=== PATIENT | male | born 1945 | race Caucasian/White ===

== ENCOUNTER 2018-05-25 10:16 | Observation (INO) | payer SELFPAY ==
[2018-05-25] VITALS (11 sets, daily range): BP systolic 132–174; BP diastolic 84–92; PULSE 60–84; RESP 15–26; TEMP 36.6–37.2; O2SAT 94–98; BMI 31.6; BMI 30.3
--- NOTE | 2018-05-25 10:29 | CT_ITS ---
STUDY: CT BRAIN WITHOUT CONTRAST REASON FOR EXAM: Male, 72 years old. Weakness. Left facial droop. RADIATION DOSAGE (If Supplied By Facility): CTDIvol = ( 44.99 ) mGy, DLP = ( 812.98 ) mGycm TECHNIQUE: Transaxial CT imaging of the brain was performed without administration of intravenous contrast material. Individualized dose optimization techniques were used for this CT. COMPARISON: No relevant priors. FINDINGS: Normal soft tissue structures. Normal calvarium. There is mild cerebral atrophy with widening of the extra-axial spaces and ventricular dilatation. Normal white matter tracts of the cerebral hemispheres. There are small punctate calcifications of the basal ganglia which are seen in the aging brain as a normal variant. Normal brainstem. Normal cerebellum. There is no intracranial hemorrhage. There are no findings of an acute ischemic infarction. Atherosclerotic calcification of the cavernous portions of the internal carotid arteries bilaterally. Dense opacification with calcification in the sphenoid sinus extending into the posterior aspect of the right ethmoid sinus. CT/Brain/Head without Contrast IMPRESSION: Chronic involutional changes of the brain. Dense opacification of the sphenoid sinus worse on the right side. Electronically Signed: Panchito Sullivan, at 11:07 EDT , Service support ,
--- NOTE | 2018-05-25 10:29 | EKG12_ITS ---
Test Reason : SOB Blood Pressure : / mmHG Vent. Rate : 079 BPM Atrial Rate : 079 BPM P-R Int : 196 ms QRS Dur : 112 ms QT Int : 412 ms P-R-T Axes : 054 030 027 degrees QTc Int : 472 ms Sinus rhythm with Premature atrial complexes Otherwise normal ECG Confirmed by CECILY COOL, ALE ([id number]), editor map JOANNE BRAMBILA ([id number]) on 05/31/2018 4:16:50 PM Referred By: Rebecca Martinez Confirmed By:ALE TONY MD
--- NOTE | 2018-05-25 10:29 | RAD_ITS ---
STUDY: X-RAY CHEST REASON FOR EXAM: Male, 72 years old. Weakness and facial tingling. TECHNIQUE: Single AP portable view of the chest. COMPARISON: None. FINDINGS: EKG electrodes are seen. Hyperinflation. Mild increased markings at the left lung base suggestive of linear atelectasis and/or scarring. Normal size heart. Normal mediastinum and jas. Normal visualized pulmonary arteries. There is atherosclerotic calcification of the aortic arch with tortuosity. There are diffuse degenerative changes of the visualized thoracic spine. Normal visualized ribs, clavicles, and shoulders. There is no demonstrated abnormality of the visualized soft tissue structures of the upper abdomen. RAD/Chest 1 View IMPRESSION: Hyperinflation. Mild increased markings at the left lung base suggestive of linear atelectasis and/or scarring. Electronically Signed: Panchito Sullivan, at 11:08 EDT , Service support ,
--- NOTE | 2018-05-25 10:49 | ED.VISSUMM ---
- ER Visit Summary Date of Service: 05/25/18 Chief Complaint: Left side weakness History of Present Illness: The patient is a 72 M who is now asymptomatic was brought in for left-sided weakness that started an hour ago and lasted about a half an hour. This started suddenly, the describes left arm weakness, left leg weakness left facial droop and what seems to me like dysarthria. Patient also told me he felt dizzy, but not lightheaded, nonvertiginous, somewhat ill-defined. He denied any chest pain or shortness of breath. No vision changes. He is now asymptomatic Physical Examination: Not appear in acute distress. Moist mucous membranes, no obvious facial deformity No C-spine tenderness supple neck. Regular rate and rhythm without any obvious murmurs Clear lungs bilaterally speaking in full sentences without any obvious respiratory distress Abdomen soft and nontender no guarding or rebound Moves all extremities without any difficulty or pain. Skin does not show any obvious rashes or lesions, no trauma. Alert oriented ?3 with no gross focal deficit. NIH stroke scale done by me is 0. Emergency Department Course and Treatment: Patient has an unremarkable ED workup after discussing with Dr. Pearson patient will get a CT angiogram assuming this will be unremarkable patient will be admitted for further workup. Disposition: Admit to hospital in stable condition Impression: TIA This note was generated with [employer] dictation software. It may contain incorrect words, spelling, and punctuation that were not noted in review of the chart prior to signing ED Disposition - Plan for ED Patient: Referrals: [facility] Doctor,Out of [Primary Care Provider] -
[2018-05-25 10:57] LABS: Absolute Lymphocyte Count 2.68 X10^3/ul (0.83-4.51); Absolute Neutrophil Count 5.4 X10^3/uL (2.0-7.7); Basophil# 0.06 X10^3/uL; Basophil% 0.7 % (0-1); Eosinophil# 0.14 X10^3/uL; Eosinophils% 1.6 % (0-5); Hematocrit 43.1 % (40-54); Hemoglobin 14.7 g/dl (13.0-16.5); Lymphocyte # 2.68 X10^3/ul (4.0); Lymphocyte % 29.9 % (19-41); Mean Corp Hgb Conc 34.1 g/gl (32-36); Mean Corpuscular Hgb 33.4 pg (27.0-32.0); Mean Platelet Vol. 11.2 fl (6.2-12.0); Monocyte% 7.8 % (0-10); Neutrophil # 5.37 X10^3/uL (2.7-7.7); Neutrophil % 59.9 % (47-70); POSITIVE COUNT NO; POSITIVE DIFFERENTIAL NO; POSITIVE MORPHOLOGY NO; Platelet Count 201 K/mm3 (150-450); RBC Distribution Width CV 12.9 % (11.6-14.6); RBC Distribution Width SD 46.3 fl (35.1-43.9)
[2018-05-25 11:00] LABS: International Normalized Ratio 1.2; Prothrombin Time (Protime)PT. 14.6 SECONDS (11.7-14.9)
[2018-05-25] MEDS: Aspirin 325 MG Tablet PO (11:05)
[2018-05-25 11:11] LABS: Anion Gap 5 (5-15); BUN 15 mg/dL (7-18); BUN/Creat Ratio 12.3 RATIO (10-20); Calcium,Total 8.6 mg/dL (8.5-10.1); Chloride 106 mmol/L (98-107); Creatinine, Serum 1.22 mg/dL (0.70-1.30); EST Glomerular Filtration Rate 62 mL/min (>60); Est Glom Filt Rate - Afr Amer 75 mL/min (>60); Estimated Creatinine Clearance 61.84 ml/min; Glucose 166 mg/dL (74-106); Potassium 3.4 mmol/L (3.5-5.1); Sodium Level 138 mmol/L (136-145)
--- NOTE | 2018-05-25 12:07 | CT_ITS ---
STUDY: CTA NECK WITH CONTRAST REASON FOR EXAM: Male, 72 years old. Weakness and TIAs. RADIATION DOSAGE (If Supplied By Facility): CTDIvol = ( 24.19 ) mGy, DLP = ( 790.03 ) mGycm TECHNIQUE: CT angiography with multi-detector data acquisition was performed from the aortic arch to the skull base following intravenous administration of 100 IV Isovue 370. MIP images were reconstructed from the axial data set. Post-processing of the angiographic images was performed, with multiplanar reformation and 3D reconstruction. Individualized dose optimization techniques were used for this CT. COMPARISON: None. FINDINGS: AORTIC ARCH: There is atherosclerotic calcific plaque formation of the aortic arch and great vessels arising from the aortic arch, without a hemodynamically significant stenosis. There is a 9 mm x 8.8 mm mural thrombus along the medial aspect of the aortic arch suggestive of a soft plaque or thrombus. There is a normal origin of the brachiocephalic, left common carotid, and left subclavian arteries. RIGHT CAROTID ARTERIES: Normal right common carotid artery (CCA). Normal right common carotid bulb. There is mild atherosclerotic plaque formation of the origin of the right internal carotid artery with less than 50% cross sectional diameter stenosis. Normal visualized cervical portion of the right internal carotid artery. Normal origin of the right external carotid artery (ECA). LEFT CAROTID ARTERIES: Normal left common carotid artery (CCA). Normal left common carotid bulb. There is mild atherosclerotic plaque formation of the origin of the left internal carotid artery with less than 50% cross sectional diameter stenosis. Normal visualized cervical portion of the left internal carotid artery. Normal origin of the left external carotid artery (ECA). VERTEBRAL ARTERIES: Normal bilateral vertebral arteries. CT/CTA Neck W/WO Contrast IMPRESSION: Calcific plaque at the origins of both left and right internal carotid arteries causing less than 50% narrowing. 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 Opacification of the sphenoid sinus. Electronically Signed: Panchito Sullivan, at 13:08 EDT , Service support ,
--- NOTE | 2018-05-25 12:07 | CT_ITS ---
STUDY: CTA OF THE BRAIN REASON FOR EXAM: Male, 72 years old. Weakness. TIA. RADIATION DOSAGE (If Supplied By Facility): CTDIvol = ( 24.19 ) mGy, DLP = ( 790.03 ) mGycm TECHNIQUE: CT angiography was performed with a multi-detector CT scanner. Data acquisition was obtained from the skull base through the vertex following intravenous administration of 100 IV Isovue 370. MIP images were reconstructed from the axial data set. Post-processing of the angiographic images was performed, with multiplanar reformation and 3D reconstruction. Individualized dose optimization techniques were used for this CT. COMPARISON: None. FINDINGS: Normal bilateral petrous carotid arteries. There is calcified plaque formation of the right cavernous carotid artery, without a cross-sectional luminal stenosis. There is calcified plaque formation of the left cavernous carotid artery, without a cross-sectional luminal stenosis. Normal right A1 segments of the anterior cerebral artery. There is hypoplastic development of the left A1 segment of the anterior cerebral arteries with an atretic but intact artery. Normal intact anterior communicating artery (ACOM). Normal bilateral A2 segments of the anterior cerebral arteries. Normal right M1 and M2 segments of the middle cerebral arteries, with a normal M1 bifurcation. Normal left M1 and M2 segments of the middle cerebral arteries, with a normal M1 bifurcation. Normal right posterior communicating artery (PCOM). Normal left posterior communicating artery (PCOM). Normal bilateral vertebral arteries. Normal basilar artery with a normal basilar bifurcation. The visualized bilateral superior cerebellar (SCA) arteries are normal. Normal bilateral P1, P2 and visualized P3 segments of the posterior cerebral arteries. There is no demonstrated aneurysm of the [place]. Opacification of the sphenoid sinus. 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 Opacification of the sphenoid sinus. Electronically Signed: Panchito Sullivan, at 12:59 EDT , Service support ,
--- NOTE | 2018-05-25 12:27 | HP.PCM_ITS ---
History of Present Illness Date of Admission: 05/25/18 Chief Complaint: left sided tingling The patient is a 72 year old M with past medical history of elevated ferritin. He was admitted through the ED on 05/25/2018 with a complaint of left-sided tingling. Patient is originally from [place] and has been on a road trip since December where he drove from [place] down to [place] and was driving up to [place] when he stopped over and will start to visit family. He was eating breakfast this morning when he noted that he was having tingling on the right side of his face. This spread down to his left arm and left leg. He says he felt too weak to stand up but did not describe any particular weakness in his extremities. He denied any blurring of his vision, any slurred speech, any tinnitus, any headache or any numbness. Of note, his states that she noted that he had some left facial droop. The EMS was called and was he also noted to have elevated blood pressure which was mildly elevated in the 140 systolic. NIHSS in the ED was 0. CT head done was negative. CT angiogram ordered and was pending at time of review. He is being admitted to be managed for TIA.[] Past Medical History Allergies No Known Allergies Allergy (Verified 05/25/18 10:30) Home Medications: Ambulatory Orders Medication Instructions Recorded NK 05/25/18 Surgical History: no surgical history Psychiatric History: No pertinent psych hx Lives: Spouse/ Significant Other Smoking Status: Never smoker Tobacco Use: Cigarettes - quit 50 years ago Alcohol: None Drugs: None - *Family History Maternal History Items: - - CVA Paternal History Items: - - CVA Review of Systems Constitutional: Denies: Chills, Fever, Weight Change Eyes: Denies: Blurred vision, Double vision HEENT: Denies: Dysphasia, Head Aches, Sinus Congestion, Sinus Drainage, Visual Changes Cardiovascular: Denies: Chest Pain, Palpitations Respiratory: Denies: Cough, Shortness of Breath, Shortness of breath at rest, Sputum production Gastrointestinal: Denies: Abdominal Pain, Nausea, Vomiting Genitourinary: Denies: Dysuria Musculoskeletal: Denies: Joint Pain, Joint Tenderness Skin: Denies: Rash, Wounds Neurological: Reports: Tingling - left side of face, left UE and LLE. Denies: Double vision, Change in Speech, Slurred speech, Confusion, Focal weakness, Numbness, Tremor, Seizures Hematologic/ Lymphatic: Denies: Easy Bruising, Easy Bleeding VTE Information - Inpt Only VTE Present on Admission: No VTE Pharm Prophylaxis ordered?: Yes - Physical Exam General: Alert, Oriented x3, Cooperative, No apparent distress HEENT: Atraumatic, PERRLA, EOMI, Normocephalic Oral: Moist Mucosa Neck: Supple, No JVD, Negative Carotid Bruits Lungs: Clear to auscultation, Normal air movement, No rhonchi, No wheeze, No rales Cardiovascular: Regular rate, Regular Rhythm, Normal S1, Normal S2, No murmurs Abdomen: Bowel Sounds Present, Soft, Non Tender, Non-Distended Extremities: No clubbing, No cyanosis, No edema, Capillary Refill Less than 3 Seconds Skin: No rashes, No breakdown Musculoskeletal: No Tenderness to Palpation of Joints or Extremities Lymphatic: No Cervical, Supraclavicular, or Inguinal Adenopathy Neurological: Cranial nerves II-XII grossly intact, Neuro grossly intact, Motor Exam 5/5 strength throughout, - - NIHSS was 0 Psych/Mental Status: Normal Affect, Appropriate, Alert and oriented to time, place, person, mood and affect Vital Signs Temp Pulse Resp BP Pulse Ox 98.3 F 64 20 H 147/87 H 97 05/25/18 10:18 05/25/18 11:30 05/25/18 11:30 05/25/18 11:30 05/25/18 11:30 Oxygen Delivery Method Room Air Weight: 233 lb 3.985 oz Body Mass Index (BMI) 31.6 Finger Stick Blood Glucose 155 Laboratory Tests Past 24 Hrs 05/25/18 05/25/18 05/25/18 10:25 10:25 10:25 WBC 9.0 RBC 4.40 L Hgb 14.7 Hct 43.1 MCV 98.0 H MCH 33.4 H MCHC 34.1 RDW 12.9 RDW Differential 46.3 H Plt Count 201 MPV 11.2 Immature Gran % (Auto) 0.100 Neut % (Auto) 59.9 Lymph % (Auto) 29.9 [place] % (Auto) 7.8 Eos % (Auto) 1.6 Baso % (Auto) 0.7 Absolute Neuts (auto) 5.4 Absolute Lymphs (auto) 2.68 Total Counted Not Reportable PT 14.6 INR 1.2 APTT 32.0 Sodium 138 Potassium 3.4 L Chloride 106 Carbon Dioxide 27.0 Anion Gap 5 BUN 15 Creatinine 1.22 Estim Creat Clear Calc 61.84 Est GFR (MDRD) Af Amer 75 Est GFR (MDRD) Non-Af 62 BUN/Creatinine Ratio 12.3 Glucose 166 H Calcium 8.6 Troponin I < 0.[address] 05/25/18 10:29 IMPRESSION: Chronic involutional changes of the brain. Dense opacification of the sphenoid sinus worse on the right side. Electronically Signed: Panchito Sullivan, at 11:07 EDT , Service support , Chest X-Ray 05/25/18 10:29 IMPRESSION: Hyperinflation. Mild increased markings at the left lung base suggestive of linear atelectasis and/or scarring. 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 Opacification of the sphenoid sinus. Electronically Signed: Panchito Sullivan, at 12:59 EDT , Service support , Neck CTA 05/25/18 12:07 IMPRESSION: Calcific plaque at the origins of both left and right internal carotid arteries causing less than 50% narrowing. 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 Opacification of the sphenoid sinus. Electronically Signed: Panchito Sullivan, at 13:08 EDT , Service support , Assessment/Plan 72 y/o male presenting with a complaint of left sided tingling 1. TIA * ABCD score 4; symptoms lasted for ~ 25 mins * NIHSS was 0 on admission * CT brain showed chronic brain involutional changes, and dense opacification of sphenoid sinus worse on right side * head CTA showed hypoplastic development of left A1 segment of anterior cerebral artery, and neck CTA showed calcific plaque at origins of both left and right internal carotid arteries causing <50% narrowing, and focal mural thrombus along medial aspect of aortic arch * admit to PCU with telemetry * PO aspirin 81mg daily * 2D echocardiogram * check lipid panel and A1C * brain MRI * neurology consult * 2. Aortic arch thrombus: * incidental finding per CDT neck. could embolise and cause a stroke. * Will likely need oral anticoagulation after the MRI shows no evidence of a bleed in the brain. * 3. Elevated ferritin * says he has a history of elevated ferritin, and has been worked up for it in [place], but not specific disease etiology was found. * stable * 4. Hypertension: * not a known hypertensive. BP was in 170s systolic on review in the ED. * will monitor; if MRI is negative, will start BP meds with goal BP of <130/80 * DVT prophylaxis: SCDs Code Visit OBSV E&M: 85054 Initial observation care L3
--- NOTE | 2018-05-25 13:59 | MRI_ITS ---
STUDY: MRI BRAIN WITHOUT CONTRAST REASON FOR EXAM: Male, 72 years old. Left facial numbness and droop TECHNIQUE: Standardized multiplanar fat and water weighted pulse sequences were obtained. COMPARISON: CTA brain and CT brain May 25, 2018 FINDINGS: Normal size of the ventricles and extra-axial spaces for the patient's age. Normal white matter tracts of the supratentorial brain. There is no evidence for recent intracranial ischemia or other cause of cytotoxic edema on diffusion weighted imaging (DWI). Normal bilateral basal ganglia. Normal thalami. There is no extra-axial fluid accumulation. Normal flow voids within the major intracranial circulation suggesting patency by spin echo criteria. Normal sella turcica, pituitary gland, infundibular stalk, optic chiasm and hypothalamus. Normal tectal plate and pineal gland. Normal midbrain, ashish and medulla. Normal cerebellum. Normal basal cisterns. Normal bilateral temporal bones. Normal bilateral internal auditory canals. No demonstrated orbital abnormality, within the constraints of a routine brain study. Hypointensity T1 and T2-weighted sequences within the sphenoid sinus. Normal calvarium and skull base. Normal visualized soft tissue structures. Normal visualized upper cervical spine. MRI/Brain without Contrast IMPRESSION: No acute stroke. Inspissated secretions versus chronic sinus disease within the sphenoid sinus. Consider fungal infection. Electronically Signed: David Lewis MD at 20:24 EDT , Service support ,
--- NOTE | 2018-05-25 14:06 | ECHOCS_ITS ---
Reason For Study: ARRYTHMIA Procedure This was a 2D Doppler, Color Flow transthoracic echocardiogram. The study was technically difficult. Contrast injection was performed. Exam performed portable in patient room. Left Ventricle Normal LV size. Left ventricular systolic function is normal. The estimated ejection fraction is 65 %. No regional wall motion abnormalities noted. Right Ventricle Normal RV size. Normal systolic function. Atria The left atrium is moderately enlarged. Normal right atrium. No doppler evidence for ASD. Mitral Valve There is no mitral annular calcification. Normal mitral valve. Mild (1+) mitral valve insufficiency. Tricuspid Valve Normal tricuspid valve. Mild tricuspid valve insufficiency. Right ventricular systolic pressure estimated to be 30 mmHg. Aortic Valve Trisinus/trileaflet aortic valve. Normal aortic valve. Pulmonic Valve The pulmonic valve is not well visualized. Mild (1+) pulmonic valve insufficiency. Great Vessels Borderline enlarged aortic root. Calcified aortic root. Pericardium/Pleural No pericardial effusion. Medication Diluted definity 3.0ml given slow IV push to enhance endocardial definition. MMode/2D Measurements & Calculations LVIDd: 4.9 cm IVSd: 1.1 cm Ao root diam: 3.9 cm LVIDs: 3.1 cm LVPWd: 1.1 cm RVDd: 3.8 cm FS: 36.0 % LAV(MOD-bp): 101.5 ml LA A4 area: 26.6 cm2 LA dimension(2D): 3.8 cm LAV(MOD-bp) Indexed: 44.6 ml/m2 LAV(MOD-sp2): 87.4 ml LAV(MOD-sp4): 101.5 ml RA A4 area: 16.8 cm2 Time Measurements MV dec time: 0.19 sec Doppler Measurements & Calculations MV E max chapito: 99.5 cm/sec Lat Peak E' Chapito: 11.1 cm/sec Med Peak E' Chapito: 9.2 cm/sec MV A max chapito: 80.8 cm/sec E/E' lat: 9.0 E/E' med: 10.8 MV E/A: 1.2 Ao V2 max: 127.8 cm/sec LV V1 max: 107.3 cm/sec PA V2 max: 106.5 cm/sec Ao max P.5 mmHg LV V1 max P.6 mmHg PI end-d chapito: 121.6 cm/sec TR max chapito: 260.2 cm/sec TR max P.1 mmHg Interpretation Summary The study was technically difficult. Contrast injection was performed. Left ventricular systolic function is normal. The estimated ejection fraction is 65 %. The left atrium is moderately enlarged. Mild (1+) mitral valve insufficiency. Mild tricuspid valve insufficiency. Mild (1+) pulmonic valve insufficiency. Calcified aortic root. Right ventricular systolic pressure estimated to be 30 mmHg. Transmitral diastolic flow velocities suggest diastolic dysfunction (pseudonormal pattern). Ordering Physician: Rebecca Martinez Referring Physician: OTD Performed By: Mihaela Ledezma RDCS, RVT
[2018-05-25 14:40] LABS: Cholesterol 193 mg/dL (200); High Density Lipoprotein 31 mg/dL; Triglycerides 114 mg/dL; Very Low Density Lipoprotein 23 mg/dL (5-40)
[2018-05-25 15:08] LABS: Hemoglobin A1c 5.6 % (4.2-6.3)
[2018-05-25] MEDS: Atorvastatin Calcium 40 MG Tablet PO (16:20)
[2018-05-25] MEDS: HEPARIN/D5w 25,000 UNITS 25,000 UNITS/250 ML IV.SOLN. 15 UNITS IV (17:41)
[2018-05-25 23:54] LABS: Partial Thromboplast Time 73.5 Seconds (24.1-36.2)
[2018-05-26] VITALS (7 sets, daily range): BP systolic 116–149; BP diastolic 70–84; PULSE 61–99; RESP 16–19; TEMP 36.5–36.8; O2SAT 93–95; BMI 30.3
--- NOTE | 2018-05-26 03:28 | EKG12_ITS ---
Test Reason : Blood Pressure : / mmHG Vent. Rate : 064 BPM Atrial Rate : 064 BPM P-R Int : 216 ms QRS Dur : 094 ms QT Int : 426 ms P-R-T Axes : 047 016 033 degrees QTc Int : 439 ms Sinus rhythm with 1st degree A-V block Otherwise normal ECG When compared with ECG of 25-MAY-2018 10:20, MANUAL COMPARISON REQUIRED, DATA IS UNCONFIRMED Confirmed by CECILY COOL, ALE ([id number]), dictionary editor JOANNE BRAMBILA ([id number]) on 05/31/2018 5:36:04 PM Referred By: Rebecca Martinez Confirmed By:ALE TONY MD
[2018-05-26 05:37] LABS: Absolute Lymphocyte Count 1.84 X10^3/ul (0.83-4.51); Absolute Neutrophil Count 4.2 X10^3/uL (2.0-7.7); Basophil# 0.04 X10^3/uL; Basophil% 0.6 % (0-1); Eosinophil# 0.19 X10^3/uL; Eosinophils% 2.7 % (0-5); Hematocrit 40.7 % (40-54); Hemoglobin 13.9 g/dl (13.0-16.5); Lymphocyte # 1.84 X10^3/ul (4.0); Lymphocyte % 26.1 % (19-41); Mean Corp Hgb Conc 34.2 g/gl (32-36); Mean Corpuscular Volume 96.7 fL (80-94); Mean Platelet Vol. 11.1 fl (6.2-12.0); Monocyte# 0.72 X10^3/uL; Monocyte% 10.2 % (0-10); Neutrophil # 4.24 X10^3/uL (2.7-7.7); Neutrophil % 60.3 % (47-70); Platelet Count 172 K/mm3 (150-450); RBC Distribution Width CV 12.5 % (11.6-14.6); RBC Distribution Width SD 43.1 fl (35.1-43.9); Red Blood Count 4.21 M/mm3 (4.6-6.2)
[2018-05-26 05:41] LABS: Partial Thromboplast Time 100.2 Seconds (24.1-36.2)
[2018-05-26 05:44] LABS: Anion Gap 7 (5-15); BUN 11 mg/dL (7-18); BUN/Creat Ratio 10.7 RATIO (10-20); Calcium,Total 8.2 mg/dL (8.5-10.1); Chloride 109 mmol/L (98-107); Creatinine, Serum 1.03 mg/dL (0.70-1.30); EST Glomerular Filtration Rate 76 mL/min (>60); Est Glom Filt Rate - Afr Amer 92 mL/min (>60); Estimated Creatinine Clearance 75.42 ml/min; Glucose 106 mg/dL (74-106); Potassium 4.1 mmol/L (3.5-5.1); Sodium Level 140 mmol/L (136-145)
[2018-05-26 05:49] LABS: POSITIVE COUNT NO; POSITIVE DIFFERENTIAL NO; POSITIVE MORPHOLOGY NO
[2018-05-26 08:20] LABS: Bedside Glucose 155 mg/dL (70-110)
[2018-05-26] MEDS: Aspirin 325 MG Tablet PO (09:37)
--- NOTE | 2018-05-26 10:20 | PCM.CONS.GEN ---
Reason for Consult Date of Consultation: 05/26/18 Reason for Consultation: right paresthesias History of Present Illness: The patient is a 72 year old M right handed, yesterday am noted left sided paresthesias and left weakness. now improved. no trigger, no med changes. not on meds normally very healthy. has been travelling to [place] for 12 yrs, 10yrs cough. mri report no cva but possible sphenoid fungal infection per admit note:The patient is a 72 year old M with past medical history of elevated ferritin. He was admitted through the ED on 05/25/2018 with a complaint of left-sided tingling. Patient is originally from [place] and has been on a road trip since December where he drove from [place] down to [place] and was driving up to [place] when he stopped over and will start to visit family. He was eating breakfast this morning when he noted that he was having tingling on the right side of his face. This spread down to his left arm and left leg. He says he felt too weak to stand up but did not describe any particular weakness in his extremities. He denied any blurring of his vision, any slurred speech, any tinnitus, any headache or any numbness. Of note, his states that she noted that he had some left facial droop. The EMS was called and was he also noted to have elevated blood pressure which was mildly elevated in the 140 systolic. NIHSS in the ED was 0. CT head done was negative. CT angiogram ordered and was pending at time of review. He is being admitted to be managed for TIA. Past Medical History Allergies No Known Allergies Allergy (Verified 05/25/18 10:30) Home Medications: Ambulatory Orders Medication Instructions Recorded NK 05/25/18 Surgical History: no surgical history Psychiatric History: No pertinent psych hx Lives: Spouse/ Significant Other Smoking Status: Former smoker Tobacco Use: Cigarettes Alcohol: None Drugs: None - *Family History Maternal History Items: - - CVA Paternal History Items: - - CVA Review of Systems Constitutional: Denies: Chills, Fever, Weight Change HEENT: Denies: Head Aches, Sinus Congestion, Sinus Drainage Cardiovascular: Denies: Chest Pain, Palpitations Respiratory: Denies: Cough, Shortness of breath at rest, Sputum production Gastrointestinal: Denies: Abdominal Pain, Nausea, Vomiting Genitourinary: Denies: Dysuria Musculoskeletal: Denies: Joint Pain, Joint Tenderness Skin: Denies: Rash, Wounds Neurological: Denies: Numbness, Tingling, Focal weakness Psychiatric: Denies: Anxiety, Depression, Homicidal Ideations, Suicidal Ideations Hematologic/ Lymphatic: Denies: Easy Bruising, Easy Bleeding - Physical Exam General: Alert, Oriented x3, Cooperative, No apparent distress HEENT: Atraumatic, PERRLA, EOMI, Normocephalic Neurological: Cranial nerves II-XII grossly intact Psych/Mental Status: Normal Affect, Alert and oriented to time, place, person, mood and affect Vital Signs Temp Pulse Resp BP Pulse Ox 36.5 C L 67 18 117/83 H 95 05/26/18 09:30 05/26/18 09:30 05/26/18 09:30 05/26/18 09:30 05/26/18 09:30 Oxygen Delivery Method Room Air Weight: 104.2 kg Body Mass Index (BMI) 30.3 Finger Stick Blood Glucose 155 Intake and Output for Last 24 Hours 05/24/18 05/25/18 05/26/18 23:59 23:59 23:59 Intake Total 550 / 550 283.3 / 283.3 Balance 550 / 550 283.3 / 283.3 Laboratory Tests Past 24 Hrs 05/25/18 05/25/18 05/25/18 10:25 10:25 10:25 WBC 9.0 RBC 4.40 L Hgb 14.7 Hct 43.1 MCV 98.0 H MCH 33.4 H MCHC 34.1 RDW 12.9 RDW Differential 46.3 H Plt Count 201 MPV 11.2 Immature Gran % (Auto) 0.100 Neut % (Auto) 59.9 Lymph % (Auto) 29.9 [place] % (Auto) 7.8 Eos % (Auto) 1.6 Baso % (Auto) 0.7 Absolute Neuts (auto) 5.4 Absolute Lymphs (auto) 2.68 Total Counted Not Reportable PT 14.6 INR 1.2 APTT 32.0 Sodium 138 Potassium 3.4 L Chloride 106 Carbon Dioxide 27.0 Anion Gap 5 BUN 15 Creatinine 1.22 Estim Creat Clear Calc 61.84 Est GFR (MDRD) Af Amer 75 Est GFR (MDRD) Non-Af 62 BUN/Creatinine Ratio 12.3 Glucose 166 H Hemoglobin A1c Calcium 8.6 Troponin I < 0.015 Triglycerides Cholesterol LDL Cholesterol VLDL Cholesterol HDL Cholesterol 05/25/18 05/25/18 05/25/18 10:25 14:35 23:25 WBC RBC Hgb Hct MCV MCH MCHC RDW RDW Differential Plt Count MPV Immature Gran % (Auto) Neut % (Auto) Lymph % (Auto) [place] % (Auto) Eos % (Auto) Baso % (Auto) Absolute Neuts (auto) Absolute Lymphs (auto) Total Counted PT INR APTT 73.5 H Sodium Potassium Chloride Carbon Dioxide Anion Gap BUN Creatinine Estim Creat Clear Calc Est GFR (MDRD) Af Amer Est GFR (MDRD) Non-Af BUN/Creatinine Ratio Glucose Hemoglobin A1c 5.6 Calcium Troponin I Triglycerides 114 Cholesterol 193 LDL Cholesterol 139 H VLDL Cholesterol 23 HDL Cholesterol 31 L 05/26/18 05/26/18 05/26/18 05:22 05:22 05:22 WBC 7.0 RBC 4.21 L Hgb 13.9 Hct 40.7 MCV 96.7 H MCH 33.0 H MCHC 34.2 RDW 12.5 RDW Differential 43.1 Plt Count 172 MPV 11.1 Immature Gran % (Auto) 0.100 Neut % (Auto) 60.3 Lymph % (Auto) 26.1 [place] % (Auto) 10.2 H Eos % (Auto) 2.7 Baso % (Auto) 0.6 Absolute Neuts (auto) 4.2 Absolute Lymphs (auto) 1.84 Total Counted Not Reportable PT INR APTT 100.2 H* Sodium 140 Potassium 4.1 Chloride 109 H Carbon Dioxide 24.0 Anion Gap 7 BUN 11 Creatinine 1.03 Estim Creat Clear Calc 75.42 Est GFR (MDRD) Af Amer 92 Est GFR (MDRD) Non-Af 76 BUN/Creatinine Ratio 10.7 Glucose 106 Hemoglobin A1c Calcium 8.2 L Troponin I Triglycerides Cholesterol LDL Cholesterol VLDL Cholesterol HDL Cholesterol POC Glucose 05/25/18 10:19 POC Glucose 155 H Current Home Med List Medication Instructions Recorded Confirmed Type NK 05/25/18 05/25/18 History Current Medications Generic Name Dose Route Start Last Admin Trade Name Freq PRN Reason Stop Dose Admin Aspirin 325 mg 05/26/18 08:00 05/26/18 09:37 Aspirin PO 325 mg DAILY@0800 JUAN MIGUEL Administration Atorvastatin Calcium 40 mg 05/25/18 14:43 05/25/18 16:20 Lipitor PO 40 mg QHS JUAN MIGUEL Administration Heparin Sodium (Porcine) 0 unit 05/25/18 21:00 Heparin Na IV UD PRN Protocol Heparin Sodium/Dextrose 25,000 units in 250 mls @ 15 mls/hr 05/25/18 15:00 05/25/18 17:41 IV 15 mls/hr .[id number] JUAN MIGUEL Administration Protocol As Directed Sodium Chloride 5 - 15 ml 05/25/18 18:45 IV UD PRN SALINE FLUSH Assessment/Plan right sided weakness, resolved, agree with asa, lipitor not needed unless indicated for hypercholesterolemia. I suspect that the abnormality on CTA is an incidental finding, however his echocardiogram may further elucidate this. His sphenoid abnormality may potentially explain some things including his chronic cough I would recommend infectious disease consultation.
--- NOTE | 2018-05-26 10:46 | CASEMGMT ---
As per admitting RN, pt has LW/POA forms but not able to bring to the hospital at this time. Pt lives in [place]. MAGEN Beckman
[2018-05-26 12:25] LABS: Partial Thromboplast Time 68.6 Seconds (24.1-36.2)
--- NOTE | 2018-05-26 12:52 | CON.PCM_ITS ---
Problem List (1) Opacified sphenoid sinus Status: Acute Reason for Consult: sinusitis Consulted by: Dr. Martinez History of Present Illness: The patient is a 72 year old M traveling from [place] to [place] after spending 3 months in [facility] who developed sudden onset of L sided tingling/weakness, came to ED. Night before with some sweats. Denies headache, congestion, drainage, mouth pain. No prior h/o sinusitis. CTA showed some sphenoid opacification. No abx given here, feeling back to normal. Full ROS performed and neg except as noted above. - Medical History Allergies/Adverse Reactions: Allergies No Known Allergies Allergy (Verified 05/25/18 10:30) Home Medications: Ambulatory Orders Medication Instructions Recorded NK 05/25/18 - Social History SMOKING STATUS:: Former smoker Vital Signs Temp Pulse Resp BP Pulse Ox 97.7 F L 69 18 117/83 H 95 05/26/18 09:30 05/26/18 11:30 05/26/18 09:30 05/26/18 09:30 05/26/18 09:30 Oxygen Delivery Method Room Air Weight: 104.2 kg Body Mass Index (BMI) 30.3 Finger Stick Blood Glucose 155 Laboratory Tests Past 24 Hrs 05/25/18 05/25/18 05/25/18 10:25 14:35 23:25 WBC RBC Hgb Hct MCV MCH MCHC RDW RDW Differential Plt Count MPV Immature Gran % (Auto) Neut % (Auto) Lymph % (Auto) [place] % (Auto) Eos % (Auto) Baso % (Auto) Absolute Neuts (auto) Absolute Lymphs (auto) Total Counted APTT 73.5 H Sodium Potassium Chloride Carbon Dioxide Anion Gap BUN Creatinine Estim Creat Clear Calc Est GFR (MDRD) Af Amer Est GFR (MDRD) Non-Af BUN/Creatinine Ratio Glucose Hemoglobin A1c 5.6 Calcium Triglycerides 114 Cholesterol 193 LDL Cholesterol 139 H VLDL Cholesterol 23 HDL Cholesterol 31 L 05/26/18 05/26/18 05/26/18 05:22 05:22 05:22 WBC 7.0 RBC 4.21 L Hgb 13.9 Hct 40.7 MCV 96.7 H MCH 33.0 H MCHC 34.2 RDW 12.5 RDW Differential 43.1 Plt Count 172 MPV 11.1 Immature Gran % (Auto) 0.100 Neut % (Auto) 60.3 Lymph % (Auto) 26.1 [place] % (Auto) 10.2 H Eos % (Auto) 2.7 Baso % (Auto) 0.6 Absolute Neuts (auto) 4.2 Absolute Lymphs (auto) 1.84 Total Counted Not Reportable APTT 100.2 H* Sodium 140 Potassium 4.1 Chloride 109 H Carbon Dioxide 24.0 Anion Gap 7 BUN 11 Creatinine 1.03 Estim Creat Clear Calc 75.42 Est GFR (MDRD) Af Amer 92 Est GFR (MDRD) Non-Af 76 BUN/Creatinine Ratio 10.7 Glucose 106 Hemoglobin A1c Calcium 8.2 L Triglycerides Cholesterol LDL Cholesterol VLDL Cholesterol HDL Cholesterol 05/26/18 12:00 WBC RBC Hgb Hct MCV MCH MCHC RDW RDW Differential Plt Count MPV Immature Gran % (Auto) Neut % (Auto) Lymph % (Auto) [place] % (Auto) Eos % (Auto) Baso % (Auto) Absolute Neuts (auto) Absolute Lymphs (auto) Total Counted APTT 68.6 H Sodium Potassium Chloride Carbon Dioxide Anion Gap BUN Creatinine Estim Creat Clear Calc Est GFR (MDRD) Af Amer Est GFR (MDRD) Non-Af BUN/Creatinine Ratio Glucose Hemoglobin A1c Calcium Triglycerides Cholesterol LDL Cholesterol VLDL Cholesterol HDL Cholesterol - Other Studies Radiology: [] reviewed images Other Studies: [] Route of nutrition/ use of supplements: [] Nutritional Intake: [] IV Site: [] Vega Catheter: [] - Physical Exam General: Alert, Oriented x3, Cooperative, No apparent distress HEENT: Atraumatic, PERRLA, EOMI, - - no sinus tenderness Neck: Supple, No Nodes Lungs: Clear to auscultation, Normal air movement Cardiovascular: Regular rate, Regular Rhythm Abdomen: Soft, Non Tender, Non-Distended Extremities: No edema Skin: No rashes IV Site: Peripheral Musculoskeletal: No Tenderness to Palpation of Joints or Extremities Neurological: Cranial nerves II-XII grossly intact - Assessment/Plan Antibiotics: [] Assessment/Plan: [] sinus opacification - asymptomatic, no need for further work-up or treatment at this time. OK for discharge. Thank you.
--- NOTE | 2018-05-26 14:49 | PCM.DC ---
- Discharge Diagnoses Current Active Problems: Current Active and Chronic Problems Opacified sphenoid sinus (Acute) You will use the following diet at home:: Cardiac Your food should be the consistency of: Regular Your liquids should be the consistency of: Regular/Thin Discharge Activity: Return to Normal Activity Weight Bearing Status: Weight bearing as tolerated Call your doctor if you observe: Numbness or Tingling, Shortness of breath, Fainting spells Instructions: What Is a TIA?, ED Transient Ischemic Attack Allergies/Adverse Reactions: Allergies No Known Allergies Allergy (Verified 05/25/18 10:30) Medications to take at Discharge Apixaban [Eliquis] 5 mg PO BID #60 tab 05/26/18 The following prescriptions were given: Apixaban [Eliquis] 5 mg PO BID #60 tab Primary Care Physician: Derek Lloyd,Out of [NON-STAFF] - Test Results: Test results from this visit will be discussed in further detail at your follow-up appointment, if applicable. When: PCP in [place] as soon as possible. Proposed Discharge Date: 05/26/18
--- NOTE | 2018-05-26 14:52 | DS.PCM_ITS ---
Discharge Date and Diagnosis Date of Admission: 05/25/18 Date of Discharge: 05/26/18 - Primary Discharge Diagnosis Active and Suspected Problems Opacified sphenoid sinus (Acute) TIA aortic arch thrombus Hospital Course and Treatment Imaging Results: Diagnostic Data Brain CT 05/25/18 10:29 IMPRESSION: Chronic involutional changes of the brain. Dense opacification of the sphenoid sinus worse on the right side. Electronically Signed: Panchito Laurie, at 11:07 EDT , Service support , Chest X-Ray 05/25/18 10:29 IMPRESSION: Hyperinflation. Mild increased markings at the left lung base suggestive of linear atelectasis and/or scarring. 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 Opacification of the sphenoid sinus. Electronically Signed: Panchito Sullivan, at 12:59 EDT , Service support , Neck CTA 05/25/18 12:07 IMPRESSION: Calcific plaque at the origins of both left and right internal carotid arteries causing less than 50% narrowing. 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 Opacification of the sphenoid sinus. Electronically Signed: Panchito Sullivan, at 13:08 EDT , Service support , Brain MRI 05/25/18 13:59 IMPRESSION: No acute stroke. Inspissated secretions versus chronic sinus disease within the sphenoid sinus. Consider fungal infection. Electronically Signed: David Lewis MD at 20:24 EDT , Service support , neurology- Dr Pearson Operations: None Procedures: 2-D Echocardiogram Summary of Care Provided: The patient is a 72 year old M with past medical history of elevated ferritin. He was admitted through the ED on 05/25/2018 with a complaint of left-sided tingling. Patient is originally from [place] and has been on a road trip since December where he drove from [place] down to [place] and was driving up to [place] when he stopped over and will start to visit family. He was eating breakfast this morning when he noted that he was having tingling on the right side of his face. This spread down to his left arm and left leg. He says he felt too weak to stand up but did not describe any particular weakness in his extremities. He denied any blurring of his vision, any slurred speech, any tinnitus, any headache or any numbness. Of note, his states that she noted that he had some left facial droop. The EMS was called and was he also noted to have elevated blood pressure which was mildly elevated in the 140 systolic. NIHSS in the ED was 0. CT head done was negative. CT angiogram showed aortic arch thrombus along medial border, and calcified plaque at origins of both left and right internal carotid arteries causing <50% narrowing. He was admitted to be managed for TIA. Per discussion with neurology, patient was started on heparin drip. 2D echo done showed normal left ventricular systolic function with EF of 65% and left atrium moderately enlarged. RVSP was estimated to be 30 mmHg. There was no mention of the aortic arch thrombus. Per discussion with the online publisher who read the echo, Dr. Woodall, he could not conclusively say whether there was or was not an aortic arch thrombus as he was unable to fully visualize the aortic arch. Hospitalist discussed CT angiogram with neurology who did not think that there was really an aortic arch thrombus. Infectious disease was consulted on account of inspissation of secretions in the sphenoid sinus which may be concerning for fungal infection. However infectious disease did not think that patient needed any treatment otherwise any evidence of fungal infection as patient was stable and had no fever or chills or any other symptoms. Hospitalist discussed CT angiogram with radiologist Dr Sullivan and reviewed the imaging with him. 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 Case was discussed with Dr. Newsome the online publisher and per this discussion, patient was started on Eliquis 5 mg twice daily for stroke prophylaxis. He is to follow-up with his primary care doctor in [place] as soon as possible. Patient seen and examined prior to discharge. He had no complaints and felt well. Review of systems otherwise negative. Labs and vitals reviewed. Home medications reviewed and reconciled. O/E; Vital Signs Height 6 ft 1 in Weight: 229 lb 11.547 oz Weight in Pounds 229.7 lbs Pulse Ox 95 Temperature 97.7 F Pulse Rate 69 Respiratory Rate 18 Blood Pressure 117/83 Blood Pressure Position Semi-Fowlers General: Alert, Oriented x3, Cooperative, No apparent distress HEENT: Atraumatic, PERRLA, EOMI, Normocephalic Oral: Moist Mucosa Neck: Supple, No JVD, Negative Carotid Bruits Lungs: Clear to auscultation, Normal air movement, No rhonchi, No wheeze, No rales Cardiovascular: Regular rate, Regular Rhythm, Normal S1, Normal S2, No murmurs Abdomen: Bowel Sounds Present, Soft, Non Tender, Non-Distended Extremities: No clubbing, No cyanosis, No edema, Capillary Refill Less than 3 Seconds Skin: No rashes, No breakdown Musculoskeletal: No Tenderness to Palpation of Joints or Extremities Lymphatic: No Cervical, Supraclavicular, or Inguinal Adenopathy Neurological: Cranial nerves II-XII grossly intact, Neuro grossly intact, Motor Exam 5/5 strength throughout, - - NIHSS -0 Psych/Mental Status: Normal Affect, Appropriate, Alert and oriented to time, place, person, mood and affect Plan as discussed above. - Physical Exam Vital Signs Temp Pulse Resp BP Pulse Ox 97.7 F L 69 18 117/83 H 95 05/26/18 09:30 05/26/18 11:30 05/26/18 09:30 05/26/18 09:30 05/26/18 09:30 Oxygen Delivery Method Room Air Weight: 229 lb 11.547 oz Body Mass Index (BMI) 30.3 Finger Stick Blood Glucose 155 Intake and Output for Last 24 Hours 05/24/18 05/25/18 05/26/18 23:59 23:59 23:59 Intake Total 550 / 550 699.3 / 699.3 Balance 550 / 550 699.3 / 699.3 Laboratory Tests Past 24 Hrs 05/25/18 05/25/18 05/26/18 14:35 23:25 05:22 WBC 7.0 RBC 4.21 L Hgb 13.9 Hct 40.7 MCV 96.7 H MCH 33.0 H MCHC 34.2 RDW 12.5 RDW Differential 43.1 Plt Count 172 MPV 11.1 Immature Gran % (Auto) 0.100 Neut % (Auto) 60.3 Lymph % (Auto) 26.1 [place] % (Auto) 10.2 H Eos % (Auto) 2.7 Baso % (Auto) 0.6 Absolute Neuts (auto) 4.2 Absolute Lymphs (auto) 1.84 Total Counted Not Reportable APTT 73.5 H Sodium Potassium Chloride Carbon Dioxide Anion Gap BUN Creatinine Estim Creat Clear Calc Est GFR (MDRD) Af Amer Est GFR (MDRD) Non-Af BUN/Creatinine Ratio Glucose Hemoglobin A1c 5.6 Calcium 05/26/18 05/26/18 05/26/18 05:22 05:22 12:00 WBC RBC Hgb Hct MCV MCH MCHC RDW RDW Differential Plt Count MPV Immature Gran % (Auto) Neut % (Auto) Lymph % (Auto) [place] % (Auto) Eos % (Auto) Baso % (Auto) Absolute Neuts (auto) Absolute Lymphs (auto) Total Counted APTT 100.2 H* 68.6 H Sodium 140 Potassium 4.1 Chloride 109 H Carbon Dioxide 24.0 Anion Gap 7 BUN 11 Creatinine 1.03 Estim Creat Clear Calc 75.42 Est GFR (MDRD) Af Amer 92 Est GFR (MDRD) Non-Af 76 BUN/Creatinine Ratio 10.7 Glucose 106 Hemoglobin A1c Calcium 8.2 L POC Glucose 05/25/18 10:19 POC Glucose 155 H Discharge Diet: Low fat/ Low Cholesterol Discharge Activity: Return to Normal Activity Weight Bearing Status: Weight bearing as tolerated Call your doctor if you observe: Numbness or Tingling, Shortness of breath, Fainting spells Home Medications: Medications to take at Discharge Apixaban [Eliquis] 5 mg PO BID #60 tab 05/26/18 Following Prescrptions Were Given to Patient: Apixaban [Eliquis] 5 mg PO BID #60 tab Primary Care Physician: [facility] Doctor,Out of [NON-STAFF] - When: PCP in [place] as soon as possible. Patient Instructions: What Is a TIA?, ED Transient Ischemic Attack Disposition: Home Minutes spent on discharge:: 50 Patient Condition:: Stable Medical Necessity - Tobacco Use Smoking Status: Former smoker Tobacco Use: Cigarettes Meaningful Use Info Meaningful Use Diagnoses (Choose all that apply): None applicable Code Visit Inpatient E&M: 51706 Disch Hosp
--- NOTE | 2018-05-26 14:52 | DCINST_ITS ---
- Discharge Diagnoses Current Active Problems: Current Active and Chronic Problems Opacified sphenoid sinus (Acute) You will use the following diet at home:: Cardiac Your food should be the consistency of: Regular Your liquids should be the consistency of: Regular/Thin Discharge Activity: Return to Normal Activity Weight Bearing Status: Weight bearing as tolerated Call your doctor if you observe: Numbness or Tingling, Shortness of breath, Fainting spells Instructions: What Is a TIA?, ED Transient Ischemic Attack Allergies/Adverse Reactions: Allergies No Known Allergies Allergy (Verified 05/25/18 10:30) Medications to take at Discharge Apixaban [Eliquis] 5 mg PO BID #60 tab 05/26/18 The following prescriptions were given: Apixaban [Eliquis] 5 mg PO BID #60 tab Primary Care Physician: Derek Lloyd,Out of [NON-STAFF] - Test Results: Test results from this visit will be discussed in further detail at your follow- up appointment, if applicable. When: PCP in [place] as soon as possible. Proposed Discharge Date: 05/26/18
--- NOTE | 2018-05-26 15:46 | CASEMGMT ---
Per Dr. Martinez, pt to be sent home on Eliquis at discharge. Med e-scribed to [facility] retail pharmacy at this time and eliquis 30 day free card tubed to pharmacy at this time. Call to [place] in pharmacy and she states that pt has $0 co-pay at this time and med to be delivered to his room for discharge. Miya BEJARANO CM
--- NOTE | 2018-05-26 16:41 | NURSING ---
Pt refusing first dose of eliquis from this RN. pt has medication from pharmacy and would like to take own med at home. Salvatore BEJARANO
== END 2018-05-26 14:51 | disposition home or self-care (01) ==
LOC: ED 11:23 → PCU 14:44
PROVIDERS: Admitting Provider Student in an Organized Health Care Education/Training Program; Emergency Provider Emergency Medicine; Referring Provider Student in an Organized Health Care Education/Training Program; Visit Provider Student in an Organized Health Care Education/Training Program
DX: G45.9 Transient cerebral ischemic attack, unspecified (principal); I74.19 Embolism and thrombosis of other parts of aorta; R20.2 Paresthesia of skin; R29.810 Facial weakness; Z87.891 Personal history of nicotine dependence; R03.0 Elevated blood-pressure reading, without diagnosis of hypertension; R79.89 Other specified abnormal findings of blood chemistry
CPT/HCPCS: 36415; 70450; 70496; 70498; 70551; 71045; 80048; 80061; 82962; 83036; 84484; 85025; 85610; 85730; 93005; 93306; 96365; 96366; 97802; 99218; 99285; J7030; Q9957; Q9967; A4216; C8929; G0378